=== PATIENT | female | born 1985 | race American Indian/Alaskan Native ===

== ENCOUNTER 2020-04-18 03:55 | Emergency (ER) | payer MEDICAID ==
[2020-04-18 06:13] LABS: Basophils % (Auto) 0.4 % (0.0-1.8); Hematocrit 37.9 % (30.3-42.9); Hemoglobin 12.7 gm/dl (10.1-14.3); Lymphocytes % (Auto) 8.4 % (13.4-35.0); Mean Corpuscular HGB Conc 34 % (30-34); Mean Corpuscular Volume 77 fl (79-97); Monocytes # (Auto) 1.5 K/mm3 (0.0-0.8); Platelet Count 250 K/mm3 (140-440); Red Cell Distribution Width 14.3 % (13.2-15.2)
[2020-04-18] MEDS ORDERED: ONDANSETRON 4 MG/2 ML INJ IV STA (06:19)
[2020-04-18] MEDS ORDERED: HYOSCYAMINE SUBL 0.125 MG TAB SL ONE (06:19)
[2020-04-18] MEDS ORDERED: SODIUM CHLORIDE 0.9% 1000 ML 1,000 ML IV ONE (06:19)
--- NOTE | 2020-04-18 06:22 | Emergency Department Report ---
Blank Doc - Documentation Documentation: 34-year-old -Swiss female with cerebral palsy presents emerged depar tment complaining of developing diarrhea which she thinks was secondary to antibiotics which she was utilizing for her UTI. She was placed on antibiotics for period of 5 days and on the third day began develop some loose stool which is continue to worsen since the onset she also reports having a vague pain to the lower abdomen region as well but reports no hematuria no hematemesis no dysuria. Reports no fevers, chills, sweats reports no chest pain. This initial assessment/diagnostic orders/clinical plan/treatment(s) is/are subject to change based on patients health status, clinical progression and re- assessment by fellow clinical providers in the ED. Further treatment and workup at subsequent clinical providers discretion. Patient/guardian urged not to elope from the ED as their condition may be serious if not clinically assessed and managed. Initial orders include: We will evaluate a set of vitals and labs Likely IV fluids and antiemetic This time we will hold off on a CT scan due to the presentation on her physical examination which was not very strong
[2020-04-18 06:24] LABS: Bacteria,Urine 1+ /HPF (Negative); Bilirubin,Urine NEG (Negative); Blood,Urine MOD (Negative); Color,Urine Yellow (Yellow); Mucus,Urine FEW /HPF; Protein,Urine <15 mg/dL mg/dL (Negative); Urobilinogen,Urine < 2.0 mg/dL (<2.0)
[2020-04-18 06:37] LABS: Albumin 4.2 g/dL (3.9-5); Calcium 10.1 mg/dL (8.4-10.2)
[2020-04-18] MEDS ORDERED: cefTRIAXone/NS 1 GM/50 ML 1 GM/50 ML BAG IV ONE (07:14)
[2020-04-18] MEDS ORDERED: HYDROmorphone 1 MG/1 ML INJ IV ONE (09:01)
[2020-04-18 10:13] VITALS: BP 172/105
--- NOTE | 2020-04-18 10:28 | Emergency Department Report ---
ED General Adult HPI - General Chief complaint: Abdominal Pain Stated complaint: DIARRHEA Time Seen by Provider: 04/18/20 07:16 Source: patient Mode of arrival: Ambulatory Limitations: No Limitations - History of Present Illness Initial comments: Patient is a 34-year-old female presents emergency room with complaints of abdominal cramping and diarrhea that began yesterday. She states that she had a few episodes yesterday morning and it resolved around 10 AM. She states that she just continued to have the abdominal cramping but was not having any more diarrhea. She states that she took some Imodium for the cramping Tylenol, Advil but secondary to the cramping she reported to the emergency room. she has not had any diarrhea since 10 AM yesterday per pt. She states that she went to [facility] clinic 5 days ago and was diagnosed with a UTI and began a course of Macrobid. She states that she has been taking the Macrobid. She denies any vomiting. She states that she did have chills but no fever. She denies any hematochezia, hematemesis, melena. She has a past medical history of cerebral palsy and a "bladder issue." She states that she last had a UTI in July 2019. She denies any allergies to medications. Severity scale (0 -10): 2 - Related Data Previous Rx's Medication Instructions Recorded Last Taken Type Acetaminophen/Codeine [Tylenol 1 tab PO Q6H PRN #10 tab 04/18/20 Unknown Rx /Codeine # 3 tab] Phenazopyridine [Pyridium] 100 mg PO TID #9 tab 04/18/20 Unknown Rx Promethazine [Phenergan] 25 mg PO Q8HR PRN #10 tab 04/18/20 Unknown Rx levoFLOXacin [Levaquin] 750 mg PO QDAY 7 Days #7 tablet 04/18/20 Unknown Rx Allergies Allergy/AdvReac Type Severity Reaction Status Date / Time No Known Allergies Allergy Unverified 04/18/20 05:31 ED Review of Systems ROS: Stated complaint: DIARRHEA Other details as noted in HPI Comment: All other systems reviewed and negative ED Past Medical Hx - Past Medical History Previous Medical History?: Yes Additional medical history: Cerebral Palsy - Surgical History Past Surgical History?: No - Social History Smoking Status: Never Smoker Substance Use Type: None - Medications Home Medications: Home Medications Medication Instructions Recorded Confirmed Last Taken Type Acetaminophen/Codeine [Tylenol 1 tab PO Q6H PRN #10 tab 04/18/20 Unknown Rx /Codeine # 3 tab] Phenazopyridine [Pyridium] 100 mg PO TID #9 tab 04/18/20 Unknown Rx Promethazine [Phenergan] 25 mg PO Q8HR PRN #10 tab 04/18/20 Unknown Rx levoFLOXacin [Levaquin] 750 mg PO QDAY 7 Days #7 tablet 04/18/20 Unknown Rx ED Physical Exam - General Limitations: No Limitations General appearance: alert, in no apparent distress - Head Head exam: Present: atraumatic, normocephalic - Eye Eye exam: Present: normal appearance - ENT ENT exam: Present: mucous membranes moist - Respiratory Respiratory exam: Present: normal lung sounds bilaterally. Absent: respiratory distress, wheezes, rales, rhonchi, stridor, chest wall tenderness, accessory muscle use, decreased breath sounds, prolonged expiratory - Cardiovascular Cardiovascular Exam: Present: regular rate, normal rhythm, normal heart sounds. Absent: systolic murmur, diastolic murmur, rubs, gallop - GI/Abdominal GI/Abdominal exam: Present: soft, normal bowel sounds. Absent: tenderness, guarding, rebound, rigid - Neurological Exam Neurological exam: Present: alert, oriented X3 - Psychiatric Psychiatric exam: Present: normal affect, normal mood - Skin Skin exam: Present: warm, dry, intact ED Course Vital Signs 04/18/20 04/18/20 05:24 10:11 Temperature 98.4 F Pulse Rate 101 H 116 H Respiratory 18 Rate Blood Pressure 152/101 Blood Pressure 172/105 [Right] O2 Sat by Pulse 98 Oximetry ED Medical Decision Making - Lab Data Result diagrams: 04/18/20 05:57 04/18/20 05:57 Lab Results 04/18/20 04/18/20 04/18/20 Range/Units 05:57 05:57 05:57 WBC 11.3 H (4.5-11.0) K/mm3 RBC 4.90 (3.65-5.03) M/mm3 Hgb 12.7 (10.1-14.3) gm/dl Hct 37.9 (30.3-42.9) % MCV 77 L (79-97) fl MCH 26 L (28-32) pg MCHC 34 (30-34) % RDW 14.3 (13.2-15.2) % Plt Count 250 (140-440) K/mm3 Lymph % (Auto) 8.4 L (13.4-35.0) % Worth % (Auto) 13.0 H (0.0-7.3) % Eos % (Auto) 0.0 (0.0-4.3) % Baso % (Auto) 0.4 (0.0-1.8) % Lymph # (Auto) 1.0 L (1.2-5.4) K/mm3 Worth # (Auto) 1.5 H (0.0-0.8) K/mm3 Eos # (Auto) 0.0 (0.0-0.4) K/mm3 Baso # (Auto) 0.0 (0.0-0.1) K/mm3 Seg Neutrophils % 78.2 H (40.0-70.0) % Seg Neutrophils # 8.8 H (1.8-7.7) K/mm3 Sodium 131 L (137-145) mmol/L Potassium 3.7 (3.6-5.0) mmol/L Chloride 94.7 L (98-107) mmol/L Carbon Dioxide 24 (22-30) mmol/L Anion Gap 16 mmol/L BUN 13 (7-17) mg/dL Creatinine 1.4 H (0.6-1.2) mg/dL Estimated GFR 52 ml/min BUN/Creatinine Ratio 9 % Glucose 112 H (65-100) mg/dL Calcium 10.1 (8.4-10.2) mg/dL Total Bilirubin 0.50 (0.1-1.2) mg/dL AST 35 (5-40) units/L ALT 20 (7-56) units/L Alkaline Phosphatase 74 (35-129) units/L Total Protein 7.6 (6.3-8.2) g/dL Albumin 4.2 (3.9-5) g/dL Albumin/Globulin Ratio 1.2 % Lipase 25 (13-60) units/L HCG, Qual Negative (Negative) Urine Color (Yellow) Urine Turbidity (Clear) Urine pH (5.0-7.0) Ur Specific [place] (1.003-1.030) Urine Protein (Negative) mg/dL Urine Glucose (UA) (Negative) mg/dL Urine Ketones (Negative) mg/dL Urine Blood (Negative) Urine Nitrite (Negative) Urine Bilirubin (Negative) Urine Urobilinogen (<2.0) mg/dL Ur Leukocyte Esterase (Negative) Urine WBC (Auto) (0.0-6.0) /HPF Urine RBC (Auto) (0.0-6.0) /HPF U Epithel Cells (Auto) (0-13.0) /HPF Urine Bacteria (Auto) (Negative) /HPF Urine Mucus /HPF Urine Yeast (Budding) /HPF 04/18/20 Range/Units Unknown WBC (4.5-11.0) K/mm3 RBC (3.65-5.03) M/mm3 Hgb (10.1-14.3) gm/dl Hct (30.3-42.9) % MCV (79-97) fl MCH (28-32) pg MCHC (30-34) % RDW (13.2-15.2) % Plt Count (140-440) K/mm3 Lymph % (Auto) (13.4-35.0) % Worth % (Auto) (0.0-7.3) % Eos % (Auto) (0.0-4.3) % Baso % (Auto) (0.0-1.8) % Lymph # (Auto) (1.2-5.4) K/mm3 Worth # (Auto) (0.0-0.8) K/mm3 Eos # (Auto) (0.0-0.4) K/mm3 Baso # (Auto) (0.0-0.1) K/mm3 Seg Neutrophils % (40.0-70.0) % Seg Neutrophils # (1.8-7.7) K/mm3 Sodium (137-145) mmol/L Potassium (3.6-5.0) mmol/L Chloride (98-107) mmol/L Carbon Dioxide (22-30) mmol/L Anion Gap mmol/L BUN (7-17) mg/dL Creatinine (0.6-1.2) mg/dL Estimated GFR ml/min BUN/Creatinine Ratio % Glucose (65-100) mg/dL Calcium (8.4-10.2) mg/dL Total Bilirubin (0.1-1.2) mg/dL AST (5-40) units/L ALT (7-56) units/L Alkaline Phosphatase (35-129) units/L Total Protein (6.3-8.2) g/dL Albumin (3.9-5) g/dL Albumin/Globulin Ratio % Lipase (13-60) units/L HCG, Qual (Negative) Urine Color Yellow (Yellow) Urine Turbidity Clear (Clear) Urine pH 7.0 (5.0-7.0) Ur Specific [place] 1.012 (1.003-1.030) Urine Protein <15 mg/dl (Negative) mg/dL Urine Glucose (UA) 150 (Negative) mg/dL Urine Ketones Tr (Negative) mg/dL Urine Blood Mod (Negative) Urine Nitrite Neg (Negative) Urine Bilirubin Neg (Negative) Urine Urobilinogen < 2.0 (<2.0) mg/dL Ur Leukocyte Esterase Mod (Negative) Urine WBC (Auto) 41.0 H (0.0-6.0) /HPF Urine RBC (Auto) 97.0 (0.0-6.0) /HPF U Epithel Cells (Auto) 5.0 (0-13.0) /HPF Urine Bacteria (Auto) 1+ (Negative) /HPF Urine Mucus Few /HPF Urine Yeast (Budding) Few /HPF - Medical Decision Making Patient is a 34-year-old female presents emergency room with complaints of abdominal cramping and diarrhea that began yesterday. She states that she had a few episodes yesterday morning and it resolved around 10 AM. She states that she just continued to have the abdominal cramping but was not having any more diarrhea. She states that she took some Imodium for the cramping Tylenol, Advil but secondary to the cramping she reported to the emergency room. she has not had any diarrhea since 10 AM yesterday per pt. She states that she went to [facility] clinic 5 days ago and was diagnosed with a UTI and began a course of Macrobid. She states that she has been taking the Macrobid. She denies any vomiting. She states that she did have chills but no fever. She denies any hematochezia, hematemesis, melena. She has a past medical history of cerebral palsy and a "bladder issue." She states that she last had a UTI in July 2019. She denies any allergies to medications. VSS. No abdominal tenderness on exam, no rebound, no guarding, no peritoneal signs. Labs show mild dehydration, mild MARIA ELENA likely secondary to volume depletion. UA shows evidence of UTI with white blood cells, red blood cells, leukocyte esterase. Patient given 1 g ceft riaxone, 1 L IV fluids, Levsin, Zofran, Dilaudid and her symptoms improved and she was feeling much better and ready to go home. Patient was able to tolerate p.o. intake without difficulty. She had no episodes of diarrhea while in the emergency department. Patient's UTI is likely resistant to Macrobid. Patient states that she only has 1 tablet left of Macrobid, advised her to stop taking and will change her antibiotics. Urine culture was sent. Patient will be placed on Levaquin. Her symptoms are likely related to her urinary tract infection as she is having lower abdominal cramping. She only had a few episodes of diarrhea which self resolved. She denies any fever or significant abdominal pain, she has no abdominal tenderness on exam. do not suspect significant c.diff colitis at this time, no fever, no significant leukocytosis, no abd ttp, her diarrhea self resolved after a couple of hours, no foul odor, pus in stool, or blood in stool per pt. Advised patient that she would need to be reexamined within the next 3 days, discussed with patient that she would need to have her urine retested for clearance of bacteria and discussed very strict return precautions with patient. I advised patient Please take medication as prescribed. Increase your water intake over the next several days. Eat a bland liquid diet and slowly advance your diet as tolerated. medication may turn your urine orange, this is normal. Follow-up with your primary care doctor in the next 3 to 5 days for reexamination and to have your urine retested for clearance of bacteria. Return to emergency room immediately for any new or worsening symptoms including but not limited to worsening abdominal pain, worsening diarrhea, vomiting, fever, etc. - Differential Diagnosis UTI, medication reaction, viral syndrome, cdiff, gastroenteritis, colitis Critical care attestation.: If time is entered above; I have spent that time in minutes in the direct care of this critically ill patient, excluding procedure time. ED Disposition Clinical Impression: Abdominal cramping, Dehydration UTI (urinary tract infection) Qualifiers: Urinary tract infection type: acute cystitis Hematuria presence: with hematuria Qualified Code(s): N30.01 - Acute cystitis with hematuria Diarrhea Qualifiers: Diarrhea type: unspecified type Qualified Code(s): R19.7 - Diarrhea, unspecified Disposition: - TO HOME OR SELFCARE Is pt being admited?: No Does the pt Need Aspirin: No Condition: Stable Instructions: Urinary Tract Infection, Adult, Abdominal Pain (ED) Additional Instructions: Please take medication as prescribed. Increase your water intake over the next several days. Eat a bland liquid diet and slowly advance your diet as tolerated. medication may turn your urine orange, this is normal. Follow-up with your primary care doctor in the next 3 to 5 days for reexamination and to have your urine retested for clearance of bacteria. Return to emergency room immediately for any new or worsening symptoms including but not limited to worsening abdominal pain, worsening diarrhea, vomiting, fever, etc. Prescriptions: levoFLOXacin [Levaquin] 750 mg PO QDAY 7 Days #7 tablet Promethazine [Phenergan] 25 mg PO Q8HR PRN #10 tab PRN Reason: Nausea Phenazopyridine [Pyridium] 100 mg PO TID #9 tab Acetaminophen/Codeine [Tylenol /Codeine # 3 tab] 1 tab PO Q6H PRN #10 tab PRN Reason: Pain , Severe (7-10) Referrals: PRIMARY MD ERICA [Primary Care Provider] - 3-5 Days NANCY TAYLOR MD [Staff Physician] - 3-5 Days [facility] [Provider Group] - 3-5 Days Forms: Work/School Release Form(ED) Time of Disposition: 10:27 Print Language: SPANISH
== END 2020-04-18 10:42 | disposition home or self-care (01) ==
LOC: ED 03:55
DX: N39.0 Urinary tract infection, site not specified (principal); E86.0 Dehydration
CPT/HCPCS: 36415; 80053; 81001; 83690; 84703; 85025; 87086; 96365; 96375; 99283; J0696; J1170; J2405; J7030

== ENCOUNTER 2020-04-22 15:14 | Inpatient (IN) | payer MEDICAID ==
--- NOTE | 2020-04-22 16:48 | Event Note ---
ED Screening Note ED Screening Note: SOB that began yesterday has lower abd cramping recently diagnosed with UTI, on a fluorquinolone no n/v/d no fever no cough states she is having "back spasms" no allergies to meds HR 120 oxygen saturation 99% on RA This initial assessment/diagnostic orders/clinical plan/treatment(s) is/are subject to change based on patients health status, clinical progression and re- assessment by fellow clinical providers in the ED. Further treatment and workup at subsequent clinical providers discretion. Patient/guardian urged not to elope from the ED as their condition may be serious if not clinically assessed and managed. Initial orders include: labs, UA, CXR
[2020-04-22 17:57] LABS: Basophils % (Auto) 0.4 % (0.0-1.8); Eosinophils # (Auto) 0.2 K/mm3 (0.0-0.4); Hematocrit 31.3 % (30.3-42.9); Hemoglobin 10.3 gm/dl (10.1-14.3); Lymphocytes # (Auto) 0.9 K/mm3 (1.2-5.4); Lymphocytes % (Auto) 9.3 % (13.4-35.0); Mean Corpuscular HGB Conc 33 % (30-34); Mean Corpuscular Volume 78 fl (79-97); Monocytes # (Auto) 1.2 K/mm3 (0.0-0.8); Monocytes % (Auto) 13.2 % (0.0-7.3); Platelet Count 229 K/mm3 (140-440); Red Blood Count 4.01 M/mm3 (3.65-5.03); Red Cell Distribution Width 14.7 % (13.2-15.2)
[2020-04-22 18:07] LABS: Albumin 3.9 g/dL (3.9-5); Calcium 9.1 mg/dL (8.4-10.2)
--- NOTE | 2020-04-22 19:10 | Emergency Department Report ---
HPI - General Chief Complaint: Allergic Reaction Time Seen by Provider: 04/22/20 16:44 - HPI HPI: This is a 34-year-old -Nepalese female who presents to the emergency department with a complaint of a 2-day history of leg swelling with left greater than right, and a 1 day history of some shortness of breath. The patient went to a [facility] clinic about 1 week ago with concern for a UTI. She was diagnosed with a UTI and was started on Macrobid. Patient began having some increased abdominal cramping and diarrhea and came in to be seen here on 04/19, 4 days ago. At that time the patient was once again diagnosed with a UTI and was switched from Macrobid to Levaquin. She was also given Phenergan, Pyridium and Tylenol #3. The patient has a past medical history of cerebral palsy. Patient denies any pain in the legs. She does have a history of a remote DVT and says that this does not feel similar. She read up on Levaquin and heard th at it can cause lower extremity swelling. Patient shortness of breath does not change with exertion and she denies any orthopnea. However when she does lay down flat she has started to have some acid reflux. ED Past Medical Hx - Past Medical History Previous Medical History?: Yes Additional medical history: Cerebral Palsy - Surgical History Past Surgical History?: No - Social History Smoking Status: Never Smoker Substance Use Type: None - Medications Home Medications: Home Medications Medication Instructions Recorded Confirmed Last Taken Type Acetaminophen/Codeine [Tylenol 1 tab PO Q6H PRN #10 tab 04/18/20 Unknown Rx /Codeine # 3 tab] Phenazopyridine [Pyridium] 100 mg PO TID #9 tab 04/18/20 Unknown Rx Promethazine [Phenergan] 25 mg PO Q8HR PRN #10 tab 04/18/20 Unknown Rx levoFLOXacin [Levaquin] 750 mg PO QDAY 7 Days #7 tablet 04/18/20 Unknown Rx ED Review of Systems ROS: Stated complaint: ALLERGIC REACTION Other details as noted in HPI Comment: All other systems reviewed and negative Constitutional: denies: chills, fever Eyes: denies: eye pain, vision change ENT: denies: ear pain, throat pain Respiratory: shortness of breath. denies: cough Cardiovascular: edema. denies: palpitations Gastrointestinal: denies: abdominal pain, vomiting Genitourinary: denies: dysuria, discharge Musculoskeletal: denies: back pain, arthralgia Skin: denies: rash, lesions Neurological: denies: headache, weakness Physical Exam - Physical Exam Vital Signs: Vital Signs 04/22/20 15:30 Temperature 98.2 F Pulse Rate 126 H Respiratory 14 Rate Blood Pressure 146/87 O2 Sat by Pulse 93 Oximetry Physical Exam: GENERAL: The patient is well-developed well-nourished. HENT: Normocephalic. Atraumatic. Patient has moist mucous membranes. EYES: Extraocular motions are intact. NECK: Supple. Trachea is midline. CHEST/LUNGS: Clear to auscultation. There is no respiratory distress noted. HEART/CARDIOVASCULAR: Regular. There is mild tachycardia. There is no murmur. ABDOMEN: Abdomen is soft, nontender. Patient has normal bowel sounds. SKIN: Skin is warm and dry. Mild bilateral nonpitting lower extremity edema. NEURO: The patient is awake, alert, and oriented. The patient is cooperative. Normal speech. MUSCULOSKELETAL: Contracted bilateral hands. ED Course Vital Signs 04/22/20 15:30 Temperature 98.2 F Pulse Rate 126 H Respiratory 14 Rate Blood Pressure 146/87 O2 Sat by Pulse 93 Oximetry - Consultations Consultation #1: 04/22/20 19:15 I spoke to the automation and controls supervisor on-call, Dr. Garcia. He agrees with the plan for a renal ultrasound and to evaluate for any type of ureteral or bladder obstruction. He would like the patient to receive one half normal saline with 75 mEq of sodium bicarbonate run at 75 cc/h. They will consult on this patient. ED Medical Decision Making - Lab Data Result diagrams: 04/22/20 17:33 04/22/20 17:33 - Radiology Data Radiology results: report reviewed DUPLEX DOPPLER LOWER EXTREMITY VEINS, LEFT INDICATION: LLE edema. TECHNIQUE: Duplex doppler imaging was performed through the veins of the left lower extremity using venous compression and other maneuvers. COMPARISON: No relevant prior imaging study available. FINDINGS: Left Common femoral vein: Negative. Left Superficial femoral vein: Negative. Left Popliteal vein: Negative. Left Ca lf veins: Negative. Additional findings: None.. IMPRESSION: 1. No sonographic evidence for DVT in the left lower extremity. ULTRASOUND RENAL INDICATION / CLINICAL INFORMATION: acute renal failure. COMPARISON: None available. FINDINGS: RIGHT KIDNEY: Length = 13.5 cm. [normal > 9 cm] - Parenchymal Thickness = 0.8 cm. [normal > 1.5 cm] - Echogenicity: Normal. - Hydronephrosis: Moderate - Cyst or mass: No significant abnormality. - Stones: None seen. LEFT KIDNEY: Length = 11.7 cm. [normal > 9 cm] - Parenchymal Thickness = 0.7 cm. [normal > 1.5 cm] - Echogenicity: Normal. - Hydronephrosis: Severe - Cyst or mass: No significant abnormality. - Stones: None seen. URINARY BLADDER: Grossly distended with no obvious mass or stone disease. FREE FLUID: None. ADDITIONAL FINDINGS: None. IMPRESSION: 1. Grossly distended urinary bladder with moderate to severe bilateral hydronephrosis and bilateral renal parenchymal thinning. - Medical Decision Making This patient presents to the emergency department with some continued lower abdominal cramping that she had attributed to a recent menstrual cycle and a urinary tract infection. Initially the patient had some undesirable side effects from the Macrobid. She was switched to Levaquin and also given 3 other medications during her last visit 5 days ago. It was at this time that the patient began having some lower extremity swelling, which is what brings her back to the emergency department again today. Patient presents with some tachycardia with a heart rate of about 130 bpm. The rest of the vital signs are reassuring including being afebrile. Bilateral lower extremity venous Doppler ultrasound was completed that did not show any evidence of DVT. The patient's labs shows acute renal failure. The patient had a creatinine of 1.5 and a GFR of about 50 when the patient was here 5 days ago. Today, the creatinine is greater than 8 and the GFR is 7. I spoke with the automation and controls supervisor on-call, as per the consultation section, and he has recommended one half normal saline with 75 mEq of sodium bicarbonate to be run at 75 cc/h. He agreed with the plan for a renal ultrasound to be done. This was completed and it showed significant bladder distention with bilateral hydronephrosis. This is most likely the reason for the patient's acute renal failure. A Johansen catheter was placed and the patient has put out about 2 L of urine thus far. Urinalysis does show a worsening urinary tract infection. Urine culture was sent and the patient was started on Rocephin. She will be admitted to the hospital for further evaluation and treatment and was accepted for admission by the hospitalist, Dr. Carias. Critical Care Time: Yes Critical care time in (mins) excluding proc time.: 35 Critical care attestation.: If time is entered above; I have spent that time in minutes in the direct care of this critically ill patient, excluding procedure time. Critical care time was spent on this patient in doing her initial evaluation, multiple reevaluations, ordering and interpretation of labs and imaging, discussion with the automation and controls supervisor, multiple discussions with the patient. Critical Care Time: 35 minutes ED Disposition Clinical Impression: Urinary retention Acute renal failure Qualifiers: Acute renal failure type: unspecified Qualified Code(s): N17.9 - Acute kidney failure, unspecified UTI (urinary tract infection) Qualifiers: Urinary tract infection type: acute cystitis Hematuria presence: with hematuria Qualified Code(s): N30.01 - Acute cystitis with hematuria Disposition: OP ADMIT IP TO THIS HOSP Is pt being admited?: Yes Condition: Serious Time of Disposition: 23:09
--- NOTE | 2020-04-22 19:52 | XRay Report ---
XR chest routine 2V INDICATION / CLINICAL INFORMATION: SOB. COMPARISON: None available. FINDINGS: SUPPORT DEVICES: None. HEART /PULMONARY VASCULATURE: No significant abnormality. LUNGS / PLEURA: No significant pulmonary or pleural abnormality. No pneumothorax. ADDITIONAL FINDINGS: No significant additional findings. IMPRESSION: 1. No acute findings. Signer Name: Nagi Rueda MD Signed: 04/22/2020 7:47 PM Workstation Name: [id number]
[2020-04-22 20:02] LABS: Bacteria,Urine 1+ /HPF (Negative); Bilirubin,Urine NEG (Negative); Blood,Urine LG (Negative); Color,Urine Amber (Yellow); Hyaline Casts,Urine 5 /LPF; Mucus,Urine FEW /HPF
[2020-04-22 20:03] LABS: RBC,Urine > 182.0 /HPF (0.0-6.0)
[2020-04-22] MEDS ORDERED: cefTRIAXone/NS 1 GM/50 ML 1 GM/50 ML BAG IV ONE (20:10)
[2020-04-22] MEDS: SODIUM BICARBONATE 75 MEQ in SODIUM CHLORIDE 0.45% 1000 ML 1,000 ML IV SCH (21:15)
[2020-04-23] MEDS ORDERED: MAGNESIUM HYDROXIDE (MOM) ORAL LIQD UDC PO PRN (00:14)
[2020-04-23] MEDS ORDERED: MORPHINE 2 MG/1 ML INJ IV PRN (00:14)
[2020-04-23] MEDS ORDERED: ONDANSETRON 4 MG/2 ML INJ IV PRN (00:14)
[2020-04-23] MEDS ORDERED: SODIUM CHLORIDE 0.9% 1000 ML 1,000 ML IV SCH (00:15)
--- NOTE | 2020-04-23 00:27 | History and Physical Report ---
History of Present Illness Date of examination: 04/22/20 Date of admission: 04/22/20 23:10 Chief complaint: Lower Extremity Swelling History of present illness: 4-year-old -[place] female with known history of cerebral palsy presenting to the emergency room today complaining of lower extremity swelling for 1 day and some mild shortness of breath. She had been seen at a [facility] clinic and has been treated with with Macrobid for UTI after which she started having abdominal cramping and diarrhea and was seen here on 04/19/2020. Her Macrobid was eventually switched to Levaquin at that time. Patient states that she has not been feeling much better and has been having some lower abdominal pain. Patient denies any fever or chills, no chest pain, she has had some nausea but no vomiting or diarrhea. Denies any headache or dizziness. Work-up in the emergency room today reveals UTI, chemistry reveals acute kidney injury. Renal ultrasound, preliminary report indicates distended bladder and possibly right-sided hydronephrosis. Microbiological Laboratory Technician on-call Dr. Freedman has been consulted by the ER physician. Patient started on empiric IV antibiotics. Past History Past Medical History: No medical history Past Surgical History: No surgical history Social history: no significant social history Family history: no significant family history Medications and Allergies Allergies Allergy/AdvReac Type Severity Reaction Status Date / Time No Known Allergies Allergy Unverified 04/18/20 05:31 Home Medications Medication Instructions Recorded Confirmed Last Taken Type Acetaminophen/Codeine [Tylenol 1 tab PO Q6H PRN #10 tab 04/18/20 Unknown Rx /Codeine # 3 tab] Phenazopyridine [Pyridium] 100 mg PO TID #9 tab 04/18/20 Unknown Rx Promethazine [Phenergan] 25 mg PO Q8HR PRN #10 tab 04/18/20 Unknown Rx levoFLOXacin [Levaquin] 750 mg PO QDAY 7 Days #7 tablet 04/18/20 Unknown Rx Active Meds: Active Medications Acetaminophen (Tylenol) 650 mg PO Q4H PRN PRN Reason: Pain MILD(1-3)/Fever >100.5/HUA Heparin Sodium (Porcine) (Heparin) 5,000 unit SUB-Q Q8HR JEANNA Sodium Bicarbonate 75 meq/ (Sodium Chloride) 1,075 mls @ 75 mls/hr IV DIRECT JEANNA Last Admin: 04/22/20 21:15 Dose: 75 mls/hr Documented by: Sodium Chloride (Nacl 0.9% 1000 Ml) 1,000 mls @ 125 mls/hr IV DIRECT JEANNA Magnesium Hydroxide (Milk Of Magnesia) 30 ml PO Q4H PRN PRN Reason: Constipation Morphine Sulfate (Morphine) 2 mg IV Q4H PRN PRN Reason: Pain, Moderate (4-6) Ondansetron HCl (Zofran) 4 mg IV Q8H PRN PRN Reason: Nausea And Vomiting Sodium Chloride (Sodium Chloride Flush Syringe 10 Ml) 10 ml IV BID JEANNA Sodium Chloride (Sodium Chloride Flush Syringe 10 Ml) 10 ml IV PRN PRN PRN Reason: LINE FLUSH Review of Systems Constitutional: no fever, no chills, no weakness Ears, nose, mouth and throat: no nasal congestion, no sore throat Cardiovascular: no chest pain, no palpitations Respiratory: no cough, no shortness of breath, no wheezing Gastrointestinal: abdominal pain, no nausea, no vomiting, no diarrhea Genitourinary Female: dysuria, no pelvic pain, no flank pain, no hematuria Musculoskeletal: no neck pain, no low back pain Integumentary: no rash, no pruritis Neurological: no headaches, no confusion Psychiatric: no anxiety, no depression Exam - Constitutional Vitals: Temp Pulse Resp BP Pulse Ox 99.1 F 124 H 17 148/55 98 04/23/20 00:17 04/23/20 00:17 04/23/20 00:17 04/23/20 00:17 04/23/20 00:17 General appearance: Present: no acute distress, well-nourished - EENT Eyes: Present: PERRL, EOM intact. Absent: scleral icterus ENT: hearing intact, clear oral mucosa, dentition normal - Neck Neck: Present: supple, normal ROM - Respiratory Respiratory effort: normal Respiratory: bilateral: CTA - Cardiovascular Rhythm: regular Heart Sounds: Present: S1 & S2. Absent: gallop, systolic murmur, diastolic murmur, rub - Extremities Extremities: no ischemia, pulses intact, pulses symmetrical, No edema Peripheral Pulses: within normal limits - Abdominal General gastrointestinal: Present: soft, tender (Mild suprapubic tenderness), distended, normal bowel sounds, other (Distended bladder). Absent: mass - Integumentary Integumentary: Present: clear, warm, dry. Absent: rash - Musculoskeletal Musculoskeletal: strength equal bilaterally, other (Deformities in hands and Contractures in wrists bilaterally.) - Psychiatric Psychiatric: appropriate mood/affect, intact judgment & insight, memory intact, cooperative - Neurologic Neurologic: CNII-XII intact, no focal deficits, moves all extremities Results - Labs CBC & Chem 7: 04/22/20 17:33 04/22/20 17:33 Labs: Abnormal lab results 04/22/20 04/22/20 04/22/20 Range/Units 17:33 17:33 19:03 MCV 78 L (79-97) fl MCH 26 L (28-32) pg Lymph % (Auto) 9.3 L (13.4-35.0) % Shoshone % (Auto) 13.2 H (0.0-7.3) % Lymph # (Auto) 0.9 L (1.2-5.4) K/mm3 Shoshone # (Auto) 1.2 H (0.0-0.8) K/mm3 Seg Neutrophils % 75.1 H (40.0-70.0) % Carbon Dioxide 17 L D (22-30) mmol/L BUN 70 H (7-17) mg/dL Creatinine 8.1 H D (0.6-1.2) mg/dL Glucose 110 H (65-100) mg/dL Urine WBC (Auto) 169.0 H (0.0-6.0) /HPF U Epithel Cells (Auto) 18.0 H (0-13.0) /HPF Assessment and Plan - Patient Problems (1) UTI (urinary tract infection) Current Visit: Yes Status: Acute Qualifiers: Urinary tract infection type: acute cystitis Hematuria presence: with hematuria Qualified Code(s): N30.01 - Acute cystitis with hematuria Plan to address problem: Placed on empiric IV antibiotics. We await urine culture result. (2) Urinary retention Current Visit: Yes Status: Acute Plan to address problem: We will schedule placement for Johansen catheter. (3) Acute renal failure Current Visit: Yes Status: Acute Qualifiers: Acute renal failure type: unspecified Qualified Code(s): N17.9 - Acute kidney failure, unspecified Plan to address problem: Microbiological Laboratory Technician on-call has been consulted for evaluation and recommendation. (4) DVT prophylaxis Current Visit: Yes Status: Acute Plan to address problem: Patient placed on subcutaneous heparin. (5) Full code status Current Visit: Yes Status: Acute
[2020-04-23] MEDS ORDERED: HEPARIN 5,000 UNIT/1 ML VIAL SUB-Q SCH (06:00)
[2020-04-23] MEDS: HEPARIN 5,000 UNIT/1 ML VIAL SUB-Q SCH ×3 (06:12→21:31)
--- NOTE | 2020-04-23 07:41 | Vascular Lab Report ---
DUPLEX DOPPLER LOWER EXTREMITY VEINS, LEFT INDICATION: LLE edema. TECHNIQUE: Duplex doppler imaging was performed through the veins of the left lower extremity using venous compr ession and other maneuvers. COMPARISON: No relevant prior imaging study available. FINDINGS: Left Common femoral vein: Negative. Left Superficial femoral vein: Negative. Left Popliteal vein: Negative. Left Calf veins: Negative. Additional findings: None.. IMPRESSION: 1. No sonographic evidence for DVT in the left lower extremity. Signer Name: Giovanni Ulloa MD Signed: 04/22/2020 10:53 PM Workstation Name: [id number]
--- NOTE | 2020-04-23 07:41 | Ultrasound Report ---
ULTRASOUND RENAL INDICATION / CLINICAL INFORMATION: acute renal failure. COMPARISON: None available. FINDINGS: RIGHT KIDNEY: Length = 13.5 cm. [normal > 9 cm] - Parenchymal Thickness = 0.8 cm. [normal > 1.5 cm] - Echogenicity: Normal. - Hydronephrosis: Moderate - Cyst or mass: No significant abnormality. - Stones: None seen. LEFT KIDNEY: Length = 11.7 cm. [normal > 9 cm] - Parenchymal Thickness = 0.7 cm. [normal > 1.5 cm] - Echogenicity: Normal. - Hydronephrosis: Severe - Cyst or mass: No significant abnormality. - Stones: None seen. URINARY BLADDER: Grossly distended with no obvious mass or stone disease. FREE FLUID: None. ADDITIONAL FINDINGS: None. IMPRESSION: 1. Grossly distended urinary bladder with moderate to severe bilateral hydronephrosis and bilateral r enal parenchymal thinning. Signer Name: Giovanni Ulloa MD Signed: 04/22/2020 10:54 PM Workstation Name: [id number]
--- NOTE | 2020-04-23 09:16 | Consultation ---
History of Present Illness - Reason for Consult Consult date: 04/23/20 acute renal failure Requesting physician: BERT GRIGGS - History of Present Illness This is a 34-year-old -[place] female who presents to the emergency department with a complaint of a 2-day history of leg swelling with left greater than right, and a 1 day history of some shortness of breath. The patient went to a [facility] clinic about 1 week ago with concern for a UTI. She was diagno sed with a UTI and was started on Macrobid. Patient began having some increased abdominal cramping and diarrhea and came in to be seen here on 04/19, 4 days ago. At that time the patient was once again diagnosed with a UTI and was switched from Macrobid to Levaquin. She was also given Phenergan, Pyridium and Tylenol #3. The patient has a past medical history of cerebral palsy. Patient denies any pain in the legs. She does have a history of a remote DVT and says that this does not feel similar. She read up on Levaquin and heard that it can cause lower extremity swelling. Patient shortness of breath does not change with exertion and she denies any orthopnea. However when she does lay down flat she has started to have some acid reflux. Patient found to be in acute renal failure and therefore this consultation. She currently has indwelling Johansen catheter in place. Past History Past Medical History: No medical history, other (History of cerebral palsy) Past Surgical History: No surgical history Social history: no significant social history Family history: no significant family history Medications and Allergies Allergies Allergy/AdvReac Type Severity Reaction Status Date / Time No Known Allergies Allergy Unverified 04/18/20 05:31 Home Medications Medication Instructions Recorded Confirmed Last Taken Type Acetaminophen/Codeine [Tylenol 1 tab PO Q6H PRN #10 tab 04/18/20 Unknown Rx /Codeine # 3 tab] Phenazopyridine [Pyridium] 100 mg PO TID #9 tab 04/18/20 Unknown Rx Promethazine [Phenergan] 25 mg PO Q8HR PRN #10 tab 04/18/20 Unknown Rx levoFLOXacin [Levaquin] 750 mg PO QDAY 7 Days #7 tablet 04/18/20 Unknown Rx Active Meds: Active Medications Acetaminophen (Tylenol) 650 mg PO Q4H PRN PRN Reason: Pain MILD(1-3)/Fever >100.5/HUA Heparin Sodium (Porcine) (Heparin) 5,000 unit SUB-Q Q8HR JEANNA Last Admin: 04/23/20 06:12 Dose: 5,000 unit Documented by: Sodium Bicarbonate 75 meq/ (Sodium Chloride) 1,075 mls @ 75 mls/hr IV DIRECT JEANNA Last Admin: 04/22/20 21:15 Dose: 75 mls/hr Documented by: Sodium Chloride (Nacl 0.9% 1000 Ml) 1,000 mls @ 125 mls/hr IV DIRECT JEANNA Magnesium Hydroxide (Milk Of Magnesia) 30 ml PO Q4H PRN PRN Reason: Constipation Morphine Sulfate (Morphine) 2 mg IV Q4H PRN PRN Reason: Pain, Moderate (4-6) Ondansetron HCl (Zofran) 4 mg IV Q8H PRN PRN Reason: Nausea And Vomiting Sodium Chloride (Sodium Chloride Flush Syringe 10 Ml) 10 ml IV BID JEANNA Sodium Chloride (Sodium Chloride Flush Syringe 10 Ml) 10 ml IV PRN PRN PRN Reason: LINE FLUSH Review of Systems All systems: negative (Negative except as noted above) Exam - Vital Signs Vital signs: Vital Signs Temp Pulse Resp BP Pulse Ox 98.2 F 126 H 14 146/87 93 04/22/20 15:30 04/22/20 15:30 04/22/20 15:30 04/22/20 15:30 04/22/20 15:30 - General Appearance General appearance: well-developed, well-nourished, appears stated age EENT: PERRL, mucous membranes moist Neck: Present: neck supple, trachea midline. Absent: JVD/HJR, Masses Respiratory: Clear to Ascultation Heart: regular, normal heart rate Gastrointestinal: Present: normal, tenderness (Discomfort noted over hypogastric and umbilical area) Integumentary: other (Deformity noted in both her hands) Results - Lab Results 04/22/20 17:33 04/22/20 17:33 Most recent lab results Calcium 9.1 mg/dL (8.4-10.2) 04/22/20 17:33 Assessment and Plan Impression * Acute kidney injury * Urinary retention * Metabolic acidosis * Cerebral palsy * Urinary tract infection Recommendations * Renal ultrasound shows grossly distended bladder with moderate to severe shiraz ateral hydronephrosis. * Agree with Johansen catheter placement. * Patient is currently putting out good amount of urine. Hopefully her renal function will improve * Continue IV fluid with bicarbonate * Antibiotic as per primary team * Shall check a CT scan of her abdomen and pelvis without contrast * Consider urology consultation * Avoid nephrotoxins * Monitor fluid status and electrolytes closely * Thank you very much for the consultation. Shall follow along with you
[2020-04-23 10:30] LABS: Calcium 8.7 mg/dL (8.4-10.2)
[2020-04-23] MEDS: ACETAMINOPHEN 325 MG TAB PO PRN ×2 (15:42→21:32)
--- NOTE | 2020-04-23 16:28 | Cat Scan Report ---
CT ABDOMEN AND PELVIS WITHOUT CONTRAST HISTORY: Bilateral hydronephrosis. COMPARISON: Renal ultrasound performed yesterday TECHNIQUE: Helical CT images of the abdomen and pelvis were obtained without administration of intrav enous contrast. Sagittal and coronal reformatted images were reviewed. All CT scans at this location are performed using CT dose reduction for ALARA by means of automated exposure control. FINDINGS: Abdomen/pelvis: Moderate to severe bilateral hydronephrosis is appreciated. There is moderate cortic al thinning throughout the left kidney and a few small left renal stones. No ureteral stones are iden tified. The bladder is decompressed with a Johansen catheter. There is a large mass in the central pelvi s measuring up to 10 x 11 x 10 cm. This appears to represent a fibroid uterus. The enlarged uterus ap pears to compress the mid to distal ureters resulting in hydronephrosis. There is no obvious adnexal abnormality. The liver, biliary system, pancreas, spleen, adrenal glands and bowel loops are unremarkable. There i s moderate fecal retention in the right hemicolon. There is a small amount of free fluid in the left paracolic gutter and surrounding the left kidney. N o abscess or free air. Lungs/bones: Small bilateral layering pleural effusions are identified. The bony structures are inta ct. Mild scoliosis is noted. IMPRESSION: Moderate to severe bilateral hydronephrosis is evident. This appears to be secondary to external comp ression from a markedly enlarged uterus or other pelvic mass. See above. Chronic cortical thinning is identified in the left kidney. Scattered small left renal stones. No ure teral stones are detected. Small ascites. Small bilateral pleural effusions. Moderate fecal retention in the proximal colon. Signer Name: Jac Veloz Jr, MD Signed: 04/23/2020 4:23 PM Workstation Name: [id number]
--- NOTE | 2020-04-23 19:23 | Progress Note ---
Assessment and Plan -- UTI (urinary tract infection) Placed on empiric IV antibiotics. We await urine culture result. -- Urinary retention Ultrasound showed bladder distention s/p placement for Johansen catheter. Ordered CT abdomen pelvis, will follow result -- Acute renal failure, creatinine 8.1 on admission Likely due to post obstruction, improving Wardsperson on-call has been consulted for evaluation and recommendation. Continue to follow BMP, continue IV --History of cerebral palsy, supportive -- DVT prophylaxis Patient placed on subcutaneous heparin. -- Full code status Brief history: 34-year-old -[place] female with known history of cerebral palsy presenting to the emergency room complaining of lower extremity swelling for 1 day and some mild shortness of breath. She had been seen at a [facility] clinic and has been treated with with Macrobid for UTI after which she started having abdominal cramping and diarrhea and was seen here on 04/19/2020. Her Macrobid was eventually switched to Levaquin at that time. Work-up in the emergency room today reveals UTI, chemistry reveals acute kidney injury. Renal ultrasound, preliminary report indicates distended bladder and possibly right-sided hydronephrosis. Wardsperson on-call Dr. Freedman has been consulted by the ER physician. Patient started on empiric IV antibiotics and admitted for further management. 04/22: Johansen catheter has been placed, patient abdominal pain improved. No further diarrhea. Will follow CT abdomen pelvis result. Patient will need urology consult -we will place after reviewing CT abdomen pelvis result. Subjective Date of service: 04/23/20 Interval history: Patient seen and examined. Medical records and medication list reviewed. No acute event overnight noted by the RN. Patient denies any chest pain or difficulty breathing. Patient is tolerating diet. States abdominal pain improved Discussed plan of care at bedside with patient. Objective - Exam Narrative Exam: GENERAL: well-developed white female lying on bed appeared to be in no discomfort. HEENT: Normocephalic. Atraumatic. No conjunctival congestion or icterus. Patient has moist mucous membranes. NECK: Supple. Trachea midline. CHEST/LUNGS: Clear to auscultated bilaterally, breathing nonlabored. No wheezes crackles or rhonchi. HEART/CARDIOVASCULAR: Regular in rate and rhythm. S1 and S2 positive. ABDOMEN: Abdomen is soft, nontender. Patient has normal bowel sounds. SKIN: There is no rash. Warm and dry. NEURO: No focal motor deficit. Follows command. MUSCULOSKELETAL: No joint effusion or tenderness. EXTRIMITY: No edema, no cyanosis or clubbing. Contracted upper extremities PSYCH: Cooperative. - Constitutional Vitals: Vital Signs - 12hr 04/23/20 04/23/20 04/23/20 07:26 11:39 15:44 Temperature 98.9 F 97.3 F L 99.1 F Pulse Rate 107 H 117 H 118 H Respiratory 18 18 20 Rate Blood Pressure 151/98 128/92 152/99 Blood Pressure [Right] O2 Sat by Pulse 99 97 98 Oximetry 04/23/20 17:34 Temperature Pulse Rate Respiratory Rate Blood Pressure Blood Pressure 157/69 [Right] O2 Sat by Pulse Oximetry - Labs CBC & Chem 7: 04/24/20 05:34 04/24/20 05:34 Labs: Abnormal lab results 04/22/20 04/23/20 Range/Units 19:03 09:25 BUN 60 H (7-17) mg/dL Creatinine 5.5 H (0.6-1.2) mg/dL Glucose 102 H (65-100) mg/dL Urine WBC (Auto) 169.0 H (0.0-6.0) /HPF U Epithel Cells (Auto) 18.0 H (0-13.0) /HPF
[2020-04-24] MEDS: HEPARIN 5,000 UNIT/1 ML VIAL SUB-Q SCH ×3 (05:14→21:34)
[2020-04-24] MEDS: ACETAMINOPHEN 325 MG TAB PO PRN ×2 (05:14→21:33)
[2020-04-24 06:07] LABS: Basophils # (Auto) 0.1 K/mm3 (0.0-0.1); Basophils % (Auto) 0.5 % (0.0-1.8); Eosinophils # (Auto) 0.3 K/mm3 (0.0-0.4); Eosinophils % (Auto) 2.7 % (0.0-4.3); Hematocrit 31.5 % (30.3-42.9); Hemoglobin 10.4 gm/dl (10.1-14.3); Lymphocytes % (Auto) 10.4 % (13.4-35.0); Mean Corpuscular HGB Conc 33 % (30-34); Mean Corpuscular Volume 77 fl (79-97); Monocytes # (Auto) 1.1 K/mm3 (0.0-0.8); Monocytes % (Auto) 11.5 % (0.0-7.3); Platelet Count 245 K/mm3 (140-440); Red Blood Count 4.07 M/mm3 (3.65-5.03); Red Cell Distribution Width 14.6 % (13.2-15.2)
[2020-04-24 06:16] LABS: INR 1.12 (0.87-1.13)
[2020-04-24 06:25] LABS: Calcium 8.9 mg/dL (8.4-10.2)
[2020-04-24] MEDS: SODIUM BICARBONATE 75 MEQ in SODIUM CHLORIDE 0.45% 1000 ML 1,000 ML IV SCH (06:59)
--- NOTE | 2020-04-24 09:09 | Progress Note ---
Assessment and Plan Impression * Acute kidney injury * Urinary retention * Metabolic acidosis * Cerebral palsy * Urinary tract infection Recommendations * Renal ultrasound shows grossly distended bladder with moderate to severe bilateral hydronephrosis. * Continue Johansen catheter for now . * Patient is also having postobstructive diuresis. Continue IV fluid. Acidosis has been corrected. Discontinue bicarbonate from the fluid. * Antibiotic as per primary team * Follow-up results of CT scan of her abdomen and pelvis without contrast * Consider urology consultation * Avoid nephrotoxins * Monitor fluid status and electrolytes closely * No indication for renal replacement therapy at this time Subjective Date of service: 04/24/20 Interval history: Patient is comfortable. Denies any shortness of breath. Appetite is improving. No nausea or vomiting. Indwelling Johansen catheter in place. Objective - Vital Signs Vital signs: Vital Signs - 12hr 04/23/20 04/24/20 04/24/20 23:53 00:00 05:17 Temperature 98.5 F 98.0 F Pulse Rate 101 H 90 Respiratory 20 20 Rate Blood Pressure 170/102 209/116 O2 Sat by Pulse 93 Oximetry - General Appearance General appearance: well-developed, well-nourished, appears stated age EENT: PERRL, mucous membranes moist Neck: no JVD, no thyromegaly, no carotid bruit, supple Respiratory: Present: Clear to Ascultation Cardiology: regular, normal heart rate Gastrointestinal: normal, normoactive bowel sounds Integumentary: no rash, other (Deformity noted in both her hands) - Lab 04/24/20 05:34 04/24/20 05:34 Most recent lab results Calcium 8.9 mg/dL (8.4-10.2) 04/24/20 05:34 Medications & Allergies - Medications Allergies/Adverse Reactions: Allergies No Known Allergies Allergy (Unverified 04/18/20 05:31) Home Medications: Home Medications Medication Instructions Recorded Confirmed Last Taken Type Acetaminophen/Codeine [Tylenol 1 tab PO Q6H PRN #10 tab 04/18/20 Unknown Rx /Codeine # 3 tab] Phenazopyridine [Pyridium] 100 mg PO TID #9 tab 04/18/20 Unknown Rx Promethazine [Phenergan] 25 mg PO Q8HR PRN #10 tab 04/18/20 Unknown Rx levoFLOXacin [Levaquin] 750 mg PO QDAY 7 Days #7 tablet 04/18/20 Unknown Rx Active Medications: Generic Name Dose Route Start Last Admin Trade Name Freq PRN Reason Stop Dose Admin Acetaminophen 650 mg 04/23/20 00:14 04/24/20 05:14 Tylenol PO 650 mg Q4H PRN Administration Pain MILD(1-3)/Fever >100.5/HUA Heparin Sodium (Porcine) 5,000 unit 04/23/20 06:00 04/24/20 05:14 Heparin SUB-Q 5,000 unit Q8HR JEANNA Administration Sodium Bicarbonate 75 meq/ 1,075 mls @ 75 mls/hr 04/22/20 19:30 04/24/20 06:59 Sodium Chloride IV 75 mls/hr DIRECT JEANNA Administration Magnesium Hydroxide 30 ml 04/23/20 00:14 Milk Of Magnesia PO Q4H PRN Constipation Morphine Sulfate 2 mg 04/23/20 00:14 Morphine IV Q4H PRN Pain, Moderate (4-6) Ondansetron HCl 4 mg 04/23/20 00:14 Zofran IV Q8H PRN Nausea And Vomiting Sodium Chloride 10 ml 04/23/20 10:00 04/23/20 21:31 Sodium Chloride Flush Syringe 10 Ml IV 10 ml BID JEANNA Administration Sodium Chloride 10 ml 04/23/20 00:14 Sodium Chloride Flush Syringe 10 Ml IV PRN PRN LINE FLUSH
[2020-04-24] MEDS ORDERED: cefTRIAXone/NS 1 GM/50 ML 1 GM/50 ML BAG IV SCH (10:00)
[2020-04-24] MEDS: cefTRIAXone/NS 2 GM/100 ML 2 GM/100 ML BAG IV SCH (11:02)
--- NOTE | 2020-04-24 17:35 | Progress Note ---
Assessment and Plan -- UTI (urinary tract infection) Placed on empiric IV antibiotics. -- Urinary retention Ultrasound showed bladder distention s/p placement for Johansen catheter. CT abdomen pelvis result noted- huge fibroid compressing bladder, consulted u rology and obg/supervisor microbiology technologists --Pelvic mass/fibroid uterus ordered pelvic US, consulted obg/supervisor microbiology technologists -- Acute renal failure, creatinine 8.1 on admission Likely due to post obstruction, improving Manager Front on-call has been consulted for evaluation and recommendation. Continue to follow BMP, continue IV --History of cerebral palsy, supportive -- DVT prophylaxis Patient placed on subcutaneous heparin. -- Full code status Brief history: 34-year-old -[place] female with known history of cerebral palsy presenting to the emergency room complaining of lower extremity swelling for 1 day and some mild shortness of breath. She had been seen at a [facility] clinic and has been treated with with Macrobid for UTI after which she started having abdominal cramping and diarrhea and was seen here on 04/19/2020. Her Macrobid was eventually switched to Levaquin at that time. Work-up in the emergency room today reveals UTI, chemistry reveals acute kidney injury. Renal ultrasound, preliminary report indicates distended bladder and possibly right-sided hydronephrosis. Manager Front on-call Dr. Freedman has been consulted by the ER physician. Patient started on empiric IV antibiotics and admitted for further management. 04/23: Johansen catheter has been placed, patient abdominal pain improved. No further diarrhea. Will follow CT abdomen pelvis result. Patient will need ur ology consult -we will place after reviewing CT abdomen pelvis result. 04/24: CT abdomen pelvis showed severe bilateral hydronephrosis secondary to external compression from a markedly enlarged uterus or other pelvic mass. Consulted urology and obg/supervisor microbiology technologists. follow renal function, Cr trending down. CT abd/pelvis: Moderate to severe bilateral hydronephrosis is evident. This appears to be secondary to external compression from a markedly enlarged uterus or other pelvic mass. Chronic cortical thinning is identified in the left kidney. Scattered small left renal stones. No ureteral stones are detected. Small ascites. Small bilateral pleural effusions. Moderate fecal retention in the proximal colon. Subjective Date of service: 04/24/20 Interval history: Patient seen and examined. Medical records and medication list reviewed. No acute event overnight noted by the RN. Patient denies any chest pain or difficulty breathing. Patient is tolerating diet. States abdominal pain improved Discussed plan of care at bedside with patient. Objective - Exam Narrative Exam: GENERAL: well-developed white female lying on bed appeared to be in no discomfort. HEENT: Normocephalic. Atraumatic. No conjunctival congestion or icterus. Patient has moist mucous membranes. NECK: Supple. Trachea midline. CHEST/LUNGS: Clear to auscultated bilaterally, breathing nonlabored. No wheezes crackles or rhonchi. HEART/CARDIOVASCULAR: Regular in rate and rhythm. S1 and S2 positive. ABDOMEN: Abdomen is soft, nontender. Patient has normal bowel sounds. SKIN: There is no rash. Warm and dry. NEURO: No focal motor deficit. Follows command. MUSCULOSKELETAL: No joint effusion or tenderness. EXTRIMITY: No edema, no cyanosis or clubbing. Contracted upper extremities PSYCH: Cooperative. - Constitutional Vitals: Vital Signs - 12hr 04/24/20 04/24/20 04/24/20 07:54 11:00 11:01 Temperature 98.6 F Pulse Rate 111 H 109 H 109 H Respiratory 20 18 Rate Blood Pressure 162/107 138/94 Blood Pressure 138/94 [Right] O2 Sat by Pulse 97 92 91 Oximetry - Labs CBC & Chem 7: 04/24/20 05:34 04/25/20 05:02 Labs: Abnormal lab results 04/24/20 04/24/20 Range/Units 05:34 05:34 MCV 77 L (79-97) fl MCH 26 L (28-32) pg Lymph % (Auto) 10.4 L (13.4-35.0) % Lyon % (Auto) 11.5 H (0.0-7.3) % Lymph # (Auto) 1.0 L (1.2-5.4) K/mm3 Lyon # (Auto) 1.1 H (0.0-0.8) K/mm3 Seg Neutrophils % 74.9 H (40.0-70.0) % BUN 32 H (7-17) mg/dL Creatinine 2.2 H D (0.6-1.2) mg/dL Glucose 118 H (65-100) mg/dL
[2020-04-25] MEDS: HEPARIN 5,000 UNIT/1 ML VIAL SUB-Q SCH ×3 (05:57→21:56)
[2020-04-25] MEDS: ACETAMINOPHEN 325 MG TAB PO PRN ×3 (05:59→21:56)
[2020-04-25] MEDS: SODIUM CHLORIDE 0.45% 1000 ML 1,000 ML IV SCH ×2 (06:06→19:00)
[2020-04-25 06:37] LABS: BUN/Creatinine Ratio 16; Blood Urea Nitrogen 14 mg/dL (7-17); Calcium 8.7 mg/dL (8.4-10.2); Hemolysis Index 1
[2020-04-25] MEDS: cefTRIAXone/NS 2 GM/100 ML 2 GM/100 ML BAG IV SCH (10:46)
--- NOTE | 2020-04-25 13:26 | Ultrasound Report ---
PELVIC ULTRASOUND HISTORY: Uterine mass. COMPARISON: CT pelvis 04/23/2020. FINDINGS: The uterus measures 11.4 x 6.2 x 9.6 cm. A large central mass measures 7.5 x 7.4 x 7.1 cm. The endometrial stripe is not well seen. Right ovary is not visualized. Left ovary measures 2.4 x 1.4 x 1.5 cm and contains a a small complex lesion measuring 9 mm. Appropriate flow is present. Negative for adnexal mass or fluid. IMPRESSION: 1. Large, central uterine lesion. Differential diagnosis includes fibroid and polyp. 2. Right ovary not visualized. 3. Suspect small complex cyst left ovary. Signer Name: Nader Skaggs MD Signed: 04/25/2020 1:22 PM Workstation Name: [id number]
--- NOTE | 2020-04-25 14:00 | Progress Note ---
Assessment and Plan Impression * Acute kidney injury * Urinary retention * Metabolic acidosis * Cerebral palsy * Urinary tract infection Recommendations * Renal ultrasound shows grossly distended bladder with moderate to severe bilateral hydronephrosis. * Continue Johansen catheter for now . * Patient is also having postobstructive diuresis. Continue IV fluid. Reduce rate. * Antibiotic as per primary team * CT scan results noted for pelvic mass * Agree with Public Stenographer and and urology consultation * Avoid nephrotoxins * Monitor fluid status and electrolytes closely Subjective Date of service: 04/25/20 Interval history: Patient is comfortable today. Denies any shortness of breath. Indwelling Johansen catheter in place. Abdominal distention appears to be better. Objective - Vital Signs Vital signs: Vital Signs - 12hr 04/25/20 04/25/20 04/25/20 04:29 08:56 11:45 Temperature 99.0 F 99.4 F 98.3 F Pulse Rate 105 H 106 H 108 H Respiratory 17 20 20 Rate Blood Pressure 142/92 137/84 111/74 O2 Sat by Pulse 95 96 98 Oximetry - General Appearance General appearance: well-developed, well-nourished, appears stated age EENT: ATNC, PERRL, mucous membranes moist Neck: no JVD, no thyromegaly, no carotid bruit, supple Respiratory: Present: Clear to Ascultation Cardiology: regular, normal heart rate Gastrointestinal: normal, normoactive bowel sounds Integumentary: other (No edema. Deformity noted in both her hands) - Lab 04/24/20 05:34 04/25/20 05:02 Most recent lab results Calcium 8.7 mg/dL (8.4-10.2) 04/25/20 05:02 Medications & Allergies - Medications Allergies/Adverse Reactions: Allergies No Known Allergies Allergy (Unverified 04/18/20 05:31) Home Medications: Home Medications Medication Instructions Recorded Confirmed Last Taken Type Acetaminophen/Codeine [Tylenol 1 tab PO Q6H PRN #10 tab 04/18/20 Unknown Rx /Codeine # 3 tab] Phenazopyridine [Pyridium] 100 mg PO TID #9 tab 04/18/20 Unknown Rx Promethazine [Phenergan] 25 mg PO Q8HR PRN #10 tab 04/18/20 Unknown Rx levoFLOXacin [Levaquin] 750 mg PO QDAY 7 Days #7 tablet 04/18/20 Unknown Rx Active Medications: Generic Name Dose Route Start Last Admin Trade Name Lakia PRN Reason Stop Dose Admin Acetaminophen 650 mg 04/23/20 00:14 04/25/20 05:59 Tylenol PO 650 mg Q4H PRN Administration Pain MILD(1-3)/Fever >100.5/HUA Heparin Sodium (Porcine) 5,000 unit 04/23/20 06:00 04/25/20 05:57 Heparin SUB-Q 5,000 unit Q8HR JEANNA Administration Sodium Chloride 1,000 mls @ 100 mls/hr 04/24/20 10:00 04/25/20 06:06 Nacl 0.45% 1000 Ml IV 100 mls/hr DIRECT JEANNA Administration Ceftriaxone Sodium 2 gm in 100 mls @ 200 mls/hr 04/24/20 10:00 04/25/20 10:46 Rocephin/Ns 2 Gm/100 Ml IV 04/30/20 10:29 200 mls/hr Q24HR JEANNA Administration Magnesium Hydroxide 30 ml 04/23/20 00:14 Milk Of Magnesia PO Q4H PRN Constipation Morphine Sulfate 2 mg 04/23/20 00:14 Morphine IV Q4H PRN Pain, Moderate (4-6) Ondansetron HCl 4 mg 04/23/20 00:14 Zofran IV Q8H PRN Nausea And Vomiting Sodium Chloride 10 ml 04/23/20 10:00 04/25/20 10:47 Sodium Chloride Flush Syringe 10 Ml IV 10 ml BID JEANNA Administration Sodium Chloride 10 ml 04/23/20 00:14 Sodium Chloride Flush Syringe 10 Ml IV PRN PRN LINE FLUSH
--- NOTE | 2020-04-25 15:51 | Progress Note ---
Assessment and Plan -- UTI (urinary tract infection) Placed on empiric IV antibiotics. -- Urinary retention Ultrasound showed bladder distention s/p placement for Calvo catheter. CT abdomen pelvis result noted- huge fibroid compressing bladder, consulted u rology and obg/construction operations manager --Pelvic mass/fibroid uterus ordered pelvic US, consulted obg/construction operations manager -- Acute renal failure, creatinine 8.1 on admission Likely due to post obstruction, improving Hvac Service Tech on-call has been consulted for evaluation and recommendation. Continue to follow BMP, continue IV --History of cerebral palsy, cont supportive care -- DVT prophylaxis Patient placed on subcutaneous heparin. -- Full code status Brief history: 34-year-old -Mal[place]ian female with known history of cerebral palsy presenting to the emergency room complaining of lower extremity swelling for 1 day and some mild shortness of breath. She had been seen at a [facility] clinic and has been treated with with Macrobid for UTI after which she started having abdominal cramping and diarrhea and was seen here on 04/19/2020. Her Macrobid was eventually switched to Levaquin at that time. Work-up in the emergency room today reveals UTI, chemistry reveals acute kidney injury. Renal ultrasound, preliminary report indicates distended bladder and possibly right-sided hydronephrosis. Hvac Service Tech on-call Dr. Freedman has been consulted by the ER physician. Patient started on empiric IV antibiotics and admitted for further management. 04/23: Calvo catheter has been placed, patient abdominal pain improved. No further diarrhea. Will follow CT abdomen pelvis result. Patient will need urology consult -we will place after reviewing CT abdomen pelvis result. 04/24: CT abdomen pelvis showed severe bilateral hydronephrosis secondary to external compression from a markedly enlarged uterus or other pelvic mass. Consulted urology and obg/construction operations manager. follow renal function, Cr trending down. CT abd/pelvis: Moderate to severe bilateral hydronephrosis is evident. This appears to be sec ondary to external compression from a markedly enlarged uterus or other pelvic mass. Chronic cortical thinning is identified in the left kidney. Scattered small left renal stones. No ureteral stones are detected. Small ascites. Small bilateral pleural effusions. Moderate fecal retention in the proximal colon. 04/25: renal function improved. need outpt f/u for fibroid uterus, need to d/c home with calvo. if clinically stable possible d/c tomorrow. Subjective Date of service: 04/25/20 Interval history: Patient seen and examined. Medical records and medication list reviewed. No acute event overnight noted by the RN. Patient denies any chest pain or difficulty breathing. Patient is tolerating diet. States abdominal pain improved Discussed plan of care at bedside with patient. Objective - Exam Narrative Exam: GENERAL: well-developed white female lying on bed appeared to be in no discomfort. HEENT: Normocephalic. Atraumatic. No conjunctival congestion or icterus. Patient has moist mucous membranes. NECK: Supple. Trachea midline. CHEST/LUNGS: Clear to auscultated bilaterally, breathing nonlabored. No wheezes crackles or rhonchi. HEART/CARDIOVASCULAR: Regular in rate and rhythm. S1 and S2 positive. ABDOMEN: Abdomen is soft, nontender. Patient has normal bowel sounds. SKIN: There is no rash. Warm and dry. NEURO: No focal motor deficit. Follows command. MUSCULOSKELETAL: No joint effusion or tenderness. EXTRIMITY: No edema, no cyanosis or clubbing. Contracted upper extremities PSYCH: Cooperative. - Constitutional Vitals: Vital Signs - 12hr 04/25/20 04/25/20 04/25/20 04:29 08:56 11:45 Temperature 99.0 F 99.4 F 98.3 F Pulse Rate 105 H 106 H 108 H Respiratory 17 20 20 Rate Blood Pressure 142/92 137/84 111/74 O2 Sat by Pulse 95 96 98 Oximetry - Labs CBC & Chem 7: 04/24/20 05:34 04/25/20 05:02 Labs: Abnormal lab results 04/25/20 Range/Units 05:02 Glucose 113 H (65-100) mg/dL
--- NOTE | 2020-04-25 15:57 | Consultation ---
History of Present Illness Consult date: 04/25/20 Reason for consult: pelvic mass History of present illness: 34 yo A2 c/b cerebral palsy presenting with abdominal pain and concern for UTI, indicentally found to have large fibroid uterus with possible compression to bladder with hydronephrosis. Rebekah reports hx of urinary issue with nocturia and reported hx of retention 3-4 years ago without reported fibroid uterus at that time. Hx montly menses lasting 7 days. On OCPs for co ntrol management. Past History Past Medical History: other (cerebral palsy) Past Surgical History: D&C - Obstetrical History : 2 Para: 0 Induced : 2 (D&C x 1, medical AB x 1) Number of Living Children: 0 Medications and Allergies Allergies Allergy/AdvReac Type Severity Reaction Status Date / Time No Known Allergies Allergy Unverified 04/18/20 05:31 Home Medications Medication Instructions Recorded Confirmed Last Taken Type Acetaminophen/Codeine [Tylenol 1 tab PO Q6H PRN #10 tab 04/18/20 Unknown Rx /Codeine # 3 tab] Phenazopyridine [Pyridium] 100 mg PO TID #9 tab 04/18/20 Unknown Rx Promethazine [Phenergan] 25 mg PO Q8HR PRN #10 tab 04/18/20 Unknown Rx levoFLOXacin [Levaquin] 750 mg PO QDAY 7 Days #7 tablet 04/18/20 Unknown Rx Active Meds: Active Medications Acetaminophen (Tylenol) 650 mg PO Q4H PRN PRN Reason: Pain MILD(1-3)/Fever >100.5/HUA Last Admin: 04/25/20 14:10 Dose: 650 mg Documented by: Heparin Sodium (Porcine) (Heparin) 5,000 unit SUB-Q Q8HR JEANNA Last Admin: 04/25/20 14:09 Dose: 5,000 unit Documented by: Sodium Chloride (Nacl 0.45% 1000 Ml) 1,000 mls @ 50 mls/hr IV DIRECT JEANNA Last Admin: 04/25/20 06:06 Dose: 100 mls/hr Documented by: Ceftriaxone Sodium (Rocephin/Ns 2 Gm/100 Ml) 2 gm in 100 mls @ 200 mls/hr IV Q24HR JEANNA Stop: 04/30/20 10:29 Last Admin: 04/25/20 10:46 Dose: 200 mls/hr Documented by: Magnesium Hydroxide (Milk Of Magnesia) 30 ml PO Q4H PRN PRN Reason: Constipation Morphine Sulfate (Morphine) 2 mg IV Q4H PRN PRN Reason: Pain, Moderate (4-6) Ondansetron HCl (Zofran) 4 mg IV Q8H PRN PRN Reason: Nausea And Vomiting Sodium Chloride (Sodium Chloride Flush Syringe 10 Ml) 10 ml IV BID JEANNA Last Admin: 04/25/20 10:47 Dose: 10 ml Documented by: Sodium Chloride (Sodium Chloride Flush Syringe 10 Ml) 10 ml IV PRN PRN PRN Reason: LINE FLUSH Review of Systems All systems: negative - Vital Signs Vital signs: Vital Signs Temp Pulse Resp BP Pulse Ox 98.2 F 126 H 14 146/87 93 04/22/20 15:30 04/22/20 15:30 04/22/20 15:30 04/22/20 15:30 04/22/20 15:30 Temp Pulse Resp BP Pulse Ox 98.3 F 108 H 20 111/74 98 04/25/20 11:45 04/25/20 11:45 04/25/20 11:45 04/25/20 11:45 04/25/20 11:45 - Physical Exam Cardiovascular: Regular rate, Normal S1 Lungs: Positive: Clear to auscultation Abdomen: Positive: normal appearance, normal bowel sounds, other (thin, large lower pelvic mass) Results Result Diagrams: 04/24/20 05:34 04/25/20 05:02 Abnormal lab results 04/25/20 Range/Units 05:02 Glucose 113 H (65-100) mg/dL All other labs normal. Assessment and Plan - Patient Problems (1) Uterine fibroid Current Visit: Yes Status: Acute Plan to address problem: --Large fibroid uterus with possible compression of bladder with 2/2 hydronephrosis. No evidence of infection at this time. After discussion, patient is somewhat hesitent about surgical management. Discussed options including medications, uterine artery embolization, and myomectomy/hysterectomy. Patient considering uterine artery embolization. Given hx of urinary issues in the past, both leakage and retention, would assess for other potential etiologies of patient's symptoms. --Would defer definitive surgical management until kidney status/hydronephrosis improved unless vaginal bleeding significantly worsens. --Ok to restart home oral contraceptive --[facility] MD resident surgeon available for questions --Can follow up as outpatient for further management
--- NOTE | 2020-04-25 17:11 | Consultation ---
History of Present Illness - Reason for Consult Consult date: 04/25/20 - History of Present Illness 34 yo A2 c/b cerebral palsy presenting with abdominal pain and concern for UTI, indicentally found to have large fibroid uterus with possible compression to bladder with hydronephrosis. Rebekah reports hx of urinary issue with nocturia and reported hx of retention 3-4 years ago without reported fibroid uterus at that time. Hx montly menses lasting 7 days. On OCPs for control management. CTAP--BILAT HYDRO, + FIBROID MATERIAL DISPOSITION INSPECTOR & NEPHROLOGY ON CONSULT CREATININE 8--NOW 0.9FOLEY DRAINING WELL a/p BILAT HYDRO + FIBROID HOME WITH JASSO (big bag & leg bag) WHEN STABLE MAY NEED URODYNAMICS Past History Past Medical History: No medical history, other (History of cerebral palsy) Past Surgical History: No surgical history Social history: no significant social history Family history: no significant family history Medications and Allergies Allergies Allergy/AdvReac Type Severity Reaction Status Date / Time No Known Allergies Allergy Unverified 04/18/20 05:31 Home Medications Medication Instructions Recorded Confirmed Last Taken Type Acetaminophen/Codeine [Tylenol 1 tab PO Q6H PRN #10 tab 04/18/20 Unknown Rx /Codeine # 3 tab] Phenazopyridine [Pyridium] 100 mg PO TID #9 tab 04/18/20 Unknown Rx Promethazine [Phenergan] 25 mg PO Q8HR PRN #10 tab 04/18/20 Unknown Rx levoFLOXacin [Levaquin] 750 mg PO QDAY 7 Days #7 tablet 04/18/20 Unknown Rx Active Meds: Active Medications Acetaminophen (Tylenol) 650 mg PO Q4H PRN PRN Reason: Pain MILD(1-3)/Fever >100.5/HUA Last Admin: 04/25/20 14:10 Dose: 650 mg Documented by: Heparin Sodium (Porcine) (Heparin) 5,000 unit SUB-Q Q8HR JEANNA Last Admin: 04/25/20 14:09 Dose: 5,000 unit Documented by: Sodium Chloride (Nacl 0.45% 1000 Ml) 1,000 mls @ 50 mls/hr IV DIRECT JEANNA Last Admin: 04/25/20 06:06 Dose: 100 mls/hr Documented by: Ceftriaxone Sodium (Rocephin/Ns 2 Gm/100 Ml) 2 gm in 100 mls @ 200 mls/hr IV Q24HR [facility] Stop: 04/30/20 10:29 Last Infusion: 04/25/20 16:26 Dose: Infused Documented by: Magnesium Hydroxide (Milk Of Magnesia) 30 ml PO Q4H PRN PRN Reason: Constipation Morphine Sulfate (Morphine) 2 mg IV Q4H PRN PRN Reason: Pain, Moderate (4-6) Ondansetron HCl (Zofran) 4 mg IV Q8H PRN PRN Reason: Nausea And Vomiting Sodium Chloride (Sodium Chloride Flush Syringe 10 Ml) 10 ml IV BID [facility] Last Admin: 04/25/20 10:47 Dose: 10 ml Documented by: Sodium Chloride (Sodium Chloride Flush Syringe 10 Ml) 10 ml IV PRN PRN PRN Reason: LINE FLUSH Exam - Constitutional Vitals: Temp Pulse Resp BP Pulse Ox 99.0 F 109 H 20 131/87 96 04/25/20 16:07 04/25/20 16:07 04/25/20 16:07 04/25/20 16:07 04/25/20 16:07 Results - Labs CBC & Chem 7: 04/24/20 05:34 04/25/20 05:02 Labs: Abnormal lab results 04/25/20 Range/Units 05:02 Glucose 113 H (65-100) mg/dL
[2020-04-26] MEDS: SODIUM CHLORIDE 0.45% 1000 ML 1,000 ML IV SCH (04:53)
[2020-04-26] MEDS: HEPARIN 5,000 UNIT/1 ML VIAL SUB-Q SCH (04:59)
[2020-04-26 06:36] LABS: Blood Urea Nitrogen 10 mg/dL (7-17); Calcium 8.2 mg/dL (8.4-10.2); Hemolysis Index 1
[2020-04-26 06:43] LABS: BUN/Creatinine Ratio 14
[2020-04-26] MEDS: ACETAMINOPHEN 325 MG TAB PO PRN (06:57)
[2020-04-26 08:26] VITALS: BP 146/93
[2020-04-26] MEDS ORDERED: DOCUSATE SODIUM 100 MG CAP PO SCH (10:00)
[2020-04-26] MEDS ORDERED: POLYETHYLENE GLYCOL 3350 17 GM POWDER PO SCH (10:00)
[2020-04-26] MEDS: cefTRIAXone/NS 2 GM/100 ML 2 GM/100 ML BAG IV SCH (10:30)
--- NOTE | 2020-04-26 11:54 | Discharge Summary ---
Providers - Providers Date of Admission: 04/22/20 23:10 Date of discharge: 04/26/20 Attending physician: SAJI CURRIE 04/22/20 19:09 Consult to Physician [CONS] Routine Comment: Consulting Provider: ESTEBAN BASS Physician Instructions: Reason For Exam: acute renal failure 04/24/20 17:25 Consult to Physician [CONS] Routine Comment: Consulting Provider: YESSENIA TRUJILLO Physician Instructions: Reason For Exam: fibroid uterus Primary care physician: SERVICES ACCOUNT MANAGER Hospitalization Condition: Fair Pertinent studies: CT scan abdomen showed moderate hydronephrosis renal ultrasound showed distended uterus with bilateral hydronephrosis Lower extremity Doppler negative for DVT pelvic ultrasound large uterine fibroid small ovarian cyst. Hospital course: Patient 34-year-old female with history of cerebral palsy presented with abdominal pain pressure work-up found to have large uterine fibroid compressing on the bladder causing hydronephrosis and a UTI. Patient was treated for UTI with IV antibiotics resolved. No fever no white count. Patient did have some abdominal cramping that was thought to be secondary to bilateral hydronephrosis and uterine fibroid. Urology consult was obtained Johansen catheter was placed. Patient's renal function returned to normal. Patient had acute kidney injury secondary to bilateral hydronephrosis which resolved secondary to treatment with urinary stent. This stent will be kept in and follow-up with Dr. De La Vega in 7 days. There was SEAM HAMMERER consult as well and patient was given the option for surgical intervention and did not want to do that at that time. Want to follow- up with SEAM HAMMERER to obtain information on other options that may be used down the road. Such as embolization. Disposition: - TO HOME OR SELFCARE - Discharge Diagnoses (1) Acute renal failure Status: Acute Qualifiers: Acute renal failure type: unspecified Qualified Code(s): N17.9 - Acute kidney failure, unspecified (2) DVT prophylaxis Status: Acute (3) Full code status Status: Acute (4) UTI (urinary tract infection) Status: Acute Qualifiers: Urinary tract infection type: acute cystitis Hematuria presence: with hematuria Qualified Code(s): N30.01 - Acute cystitis with hematuria (5) Urinary retention Status: Acute (6) Uterine fibroid Status: Acute (7) Abdominal cramping Status: Acute (8) Dehydration Status: Acute Core Measure Documentation - Palliative Care Palliative Care/ Comfort Measures: Not Applicable - Core Measures Any of the following diagnoses?: none Exam - Constitutional Vitals: Temp Pulse Resp BP Pulse Ox 98.3 F 103 H 18 146/93 96 04/26/20 08:26 04/26/20 08:26 04/26/20 08:26 04/26/20 08:26 04/26/20 08:26 General appearance: Present: no acute distress, well-nourished - EENT Eyes: Present: PERRL ENT: hearing intact, clear oral mucosa - Neck Neck: Present: supple, normal ROM - Respiratory Respiratory effort: normal Respiratory: bilateral: CTA - Cardiovascular Heart Sounds: Present: S1 & S2. Absent: rub, click - Extremities Extremities: pulses symmetrical, No edema Peripheral Pulses: within normal limits - Abdominal General gastrointestinal: Present: soft, non-tender, non-distended, normal bowel sounds, other (Flank pain has resolved.) Female genitourinary: Present: normal - Integumentary Integumentary: Present: clear, warm, dry - Musculoskeletal Musculoskeletal: strength equal bilaterally, generalized weakness, other (Upper extremity contractures at risk consistent with chronic cerebral palsy.) - Psychiatric Psychiatric: appropriate mood/affect, intact judgment & insight - Neurologic Neurologic: CNII-XII intact, moves all extremities Plan Weight Bearing Status: Non-Weight Bearing Diet: low protein Follow up with: PRIMARY CARE, [Primary Care Provider] - 7 Days Prescriptions: levoFLOXacin [Levaquin TAB] 750 mg PO QDAY 7 Days #7 tablet polyethylene glycoL 3350 [Miralax 3350] 17 gm PO QDAY #1 powd.pack Promethazine [Phenergan] 25 mg PO Q8HR PRN #10 tab PRN Reason: Nausea Phenazopyridine [Pyridium] 100 mg PO TID #9 tab Acetaminophen/Codeine [Tylenol /Codeine # 3 tab] 1 tab PO Q6H PRN #10 tab PRN Reason: Pain , Severe (7-10)
--- NOTE | 2020-04-26 12:35 | Progress Note ---
Assessment and Plan Impression * Acute kidney injury * Urinary retention * Metabolic acidosis * Cerebral palsy * Urinary tract infection Recommendations * Renal ultrasound shows grossly distended bladder with moderate to severe bilateral hydronephrosis. * Continue Johansen catheter for now . * postobstructive diuresis much improved. Discontinue IV fluid. * Antibiotic as per primary team * CT scan results noted for pelvic mass * Agree with [facility]ed Tutor and and urology consultation * Avoid nephrotoxins * Monitor fluid status and electrolytes closely * No objection to discharge from renal standpoint Subjective Date of service: 04/26/20 Interval history: Patient is comfortable today. Denies any shortness of breath. Indwelling Johansen catheter in place. Abdominal distention appears to be better. Objective - Vital Signs Vital signs: Vital Signs - 12hr 04/26/20 04/26/20 05:41 08:26 Temperature 98.5 F 98.3 F Pulse Rate 100 H 103 H Respiratory 18 18 Rate Blood Pressure 138/93 146/93 O2 Sat by Pulse 98 96 Oximetry - General Appearance General appearance: well-developed, well-nourished, appears stated age EENT: PERRL, mucous membranes moist Neck: no JVD, no thyromegaly, no carotid bruit, supple Respiratory: Present: Clear to Ascultation Cardiology: regular, normal heart rate Gastrointestinal: normal, normoactive bowel sounds Integumentary: no rash, other (No edema. Deformity noted in both her hands) - Lab 04/24/20 05:34 04/26/20 06:04 Most recent lab results Calcium 8.2 mg/dL (8.4-10.2) L 04/26/20 06:04 Medications & Allergies - Medications Allergies/Adverse Reactions: Allergies No Known Allergies Allergy (Unverified 04/18/20 05:31) Home Medications: Home Medications Medication Instructions Recorded Confirmed Last Taken Type Acetaminophen [Acetaminophen TAB] 650 mg PO Q4H PRN tablet 04/26/20 Unknown Rx Acetaminophen/Codeine [Tylenol 1 tab PO Q6H PRN #10 tab 04/26/20 Unknown Rx /Codeine # 3 tab] Phenazopyridine [Pyridium] 100 mg PO TID #9 tab 04/26/20 Unknown Rx Promethazine [Phenergan] 25 mg PO Q8HR PRN #10 tab 04/26/20 Unknown Rx levoFLOXacin [Levaquin TAB] 750 mg PO QDAY 7 Days #7 tablet 04/26/20 Unknown Rx polyethylene glycoL 3350 [Miralax 17 gm PO QDAY #1 powd.pack 04/26/20 Unknown Rx 3350] Active Medications: Generic Name Dose Route Start Last Admin Trade Name Freq PRN Reason Stop Dose Admin Acetaminophen 650 mg 04/23/20 00:14 04/26/20 06:57 Tylenol PO 650 mg Q4H PRN Administration Pain MILD(1-3)/Fever >100.5/HUA Docusate Sodium 100 mg 04/26/20 10:00 04/26/20 10:31 Colace PO 100 mg BID JEANNA Administration Heparin Sodium (Porcine) 5,000 unit 04/23/20 06:00 04/26/20 04:59 Heparin SUB-Q 5,000 unit Q8HR JEANNA Administration Sodium Chloride 1,000 mls @ 50 mls/hr 04/24/20 10:00 04/26/20 04:53 Nacl 0.45% 1000 Ml IV 100 mls/hr DIRECT JEANNA Administration Ceftriaxone Sodium 2 gm in 100 mls @ 200 mls/hr 04/24/20 10:00 04/26/20 10:30 Rocephin/Ns 2 Gm/100 Ml IV 04/30/20 10:29 200 mls/hr Q24HR JEANNA Administration Magnesium Hydroxide 30 ml 04/23/20 00:14 Milk Of Magnesia PO Q4H PRN Constipation Morphine Sulfate 2 mg 04/23/20 00:14 Morphine IV Q4H PRN Pain, Moderate (4-6) Ondansetron HCl 4 mg 04/23/20 00:14 Zofran IV Q8H PRN Nausea And Vomiting Polyethylene Glycol 17 gm 04/26/20 10:00 04/26/20 10:35 Miralax 3350 PO Not Given QDAY JEANNA Sodium Chloride 10 ml 04/23/20 10:00 04/25/20 22:00 Sodium Chloride Flush Syringe 10 Ml IV 10 ml BID JEANNA Administration Sodium Chloride 10 ml 04/23/20 00:14 Sodium Chloride Flush Syringe 10 Ml IV PRN PRN LINE FLUSH
== END 2020-04-26 15:30 | disposition home or self-care (01) | DRG 683 ==
LOC: ED 15:14 → 4A 23:10
PROVIDERS: ADMIT Internal Medicine Geriatric Medicine; ATTEND Internal Medicine
DX: N17.9 Acute kidney failure, unspecified (principal); N30.01 Acute cystitis with hematuria; E87.2 Acidosis; J91.8 Pleural effusion in other conditions classified elsewhere; R18.8 Other ascites; G80.9 Cerebral palsy, unspecified; D25.9 Leiomyoma of uterus, unspecified; N13.2 Hydronephrosis with renal and ureteral calculous obstruction; E86.0 Dehydration; N83.202 Unspecified ovarian cyst, left side
CPT/HCPCS: 36415; 71046; 74176; 76770; 76856; 80048; 80053; 81001; 85025; 85610; 87086; 96365; 96372; G0378; J0696; J1644; J7030